=== PATIENT | female | born 1955 | race Caucasian/White ===

== ENCOUNTER 2018-05-18 08:49 | Emergency (ER) | payer OTHER ==
[2018-05-18] MEDS: HYDROCODONE/APAP (5/325) TAB PO (09:37)
[2018-05-18] MEDS: ONDANSETRON (ODT) 4 MG TAB ODT (09:37)
== END 2018-05-18 11:14 | disposition home or self-care (01) ==
LOC: FTE 08:49
DX: M79.662 Pain in left lower leg (principal)
CPT/HCPCS: 73510; 73550; 93971; 99284-25